=== PATIENT | male | born 1960 | race Hispanic/Latino ===

== ENCOUNTER 2016-08-20 09:55 | Day surgery (SDC) | payer BC ==
[2016-08-17 13:43] VITALS: BMI 26.6
[2016-08-20] MEDS ORDERED: Lactated Ringer's 1,000 ML IV ONE ×2 (15:05→16:39)
[2016-08-20] MEDS ORDERED: ceFAZolin IV 1 gm in Dextrose 1 GM/50 ML BAG IVPB ONE (15:06)
[2016-08-20] MEDS ORDERED: Propofol 10 mg/ml Inj (20 ML) ONE (15:09)
[2016-08-20] MEDS ORDERED: Midazolam 2 MG/2 ML VIAL ONE (15:10)
[2016-08-20] MEDS ORDERED: Bupivacaine HCl 0.5% PF (10 ml) Inj ONE (15:32)
[2016-08-20] MEDS ORDERED: Neostigmine Methylsulfate 3mg/3ml Syringe IV ONE (15:55)
--- NOTE | 2016-08-20 16:12 | PCM.SURG1 ---
Surgeon's Initial Post Op Note - Surgeon's Notes Surgeon: Vivian Payroll Bookkeeper: Baljit Pre-Operative Diagnosis: ventral hernia Operative Findings: ventral hernia sac Post-Operative Diagnosis: ventral hernia Operation Performed: ventral hernia repair with mesh Specimen/Specimens Removed: n/a Estimated Blood Loss: EBL {In ML}: 20 Date of Surgery/Procedure: 08/20/16 Time of Surgery/Procedure: 15:00
[2016-08-20] MEDS: HYDROmorphone 0.5 mg/0.5 ml ISec IVP PRN ×2 (16:13→16:46)
[2016-08-20] MEDS ORDERED: Oxycodone/Acetaminophen 5/325 mg Tab PO PRN (16:13)
[2016-08-20] MEDS ORDERED: HYDROmorphone 1 mg/ml ISec ONE (16:47)
[2016-08-20 18:28] VITALS: O2SAT 98
[2016-08-20 18:48] VITALS: RESP 18
[2016-08-20 18:51] VITALS: BP 110/70; PULSE 79; TEMP 98.8
--- NOTE | 2016-08-20 20:14 | OP ---
PROCEDURE DATE: 08/20/2016 PREOPERATIVE DIAGNOSIS: Ventral hernia. POSTOPERATIVE DIAGNOSIS: Ventral hernia. PROCEDURE CARRIED OUT: Repair of ventral hernia with mesh. SURGEON: Mark Park Jr., MD AUTOMATION MACHINE OPERATOR: . ANESTHESIOLOGIST: INDICATIONS: The patient is a 56-year-old man, HIV positive, who has an increasingly prominent umbil ical hernia which is intermittently stuck. He also has a larger diastasis recti. It was clearly explained to the patient that the diastasis rec ti was physiologic and would not require repair; however, the defect at the umbilicus did require rep air. OPERATIVE FINDINGS: 1. The hernia was chronically incarcerated. 2. The mesh was completely unfurled. It was an 8 cm mesh and unfurled completely in the preperitone al space and this was a Ventralex type mesh that was used. PROCEDURE: The patient was given general anesthesia, intravenous antibiotics, Venodyne boots were ap plied. A standard transverse incision was made on the umbilicus. Hernia defect identified, clearly circled all the way around without any evidence of any additional defect or problems. After this had been done, we then placed the 8 cm mesh into the peritoneal cavity, unfurled it appropriately, sutur ed it to the surrounding fascia and then closed the skin with subcuticular closure. Blood loss of th e procedure was less than 20 mL. OPERATION CARRIED OUT: Repair of chronically incarcerated ventral hernia with mesh. Mark Park Jr., MD cc: [id number] TT: 08/20/2016 20:13:01 riri
== END 2016-08-20 18:40 | disposition home or self-care (01) ==
LOC: C.SDS 09:55
PROVIDERS: ATTEND Surgery Vascular Surgery
DX: K43.9 Ventral hernia without obstruction or gangrene (principal)
CPT/HCPCS: 49566; 49568; J0690; J1170; J2250; J2704; J2710; J3010; J7120